=== PATIENT | male | born 1995 | race Caucasian/White ===

== ENCOUNTER 2022-11-25 20:34 | Emergency (ER) | payer SELFPAY ==
[2022-11-25 20:38] VITALS: BP 133/99; BP 148/98; PULSE 122; PULSE 98; RESP 16; TEMP 36.9; O2SAT 100; O2SAT 94; BMI 18.3
--- NOTE | 2022-11-25 21:36 | ED_ITS ---
HPI - Overdose General Chief Complaint: Overdose Stated Complaint: overdose Time Seen by Provider: 11/25/22 20:52 Source: patient Mode of arrival: ambulatory Limitations: no limitations History of Present Illness HPI Narrative: 26-year-old male brought in by ambulance for evaluation after was given Narcan. Patient admitted to using 1 bag of heroin intravenously found by his cousin in the bathroom unresponsive patient was given 4 mg of Narcan intranasally by EMS and he was bagged by EMS with BMV, patient department and is awake, alert, declined any SI or HI, patient admitted that he is homeless has no place to go tonight and very tired he has not slept for the past 3 days. Patient with stable vital signs while he is in the emergency department. Related Data Allergies Allergy/AdvReac Type Severity Reaction Status Date / Time No Known Allergies Allergy Verified 11/26/22 00:27 Review of Systems Review of Systems: All other systems are reviewed and are negative Constitutional: Reports as per HPI and Reports no additional constitutional complaints Eyes: Reports as per HPI and Reports no additional eye complaints Reports system reviewed and no additional complaints, except as documented Cardiovascular: Reports as per HPI and Reports no additional cardiovascular complaints Respiratory: Reports as per HPI and Reports no additional respiratory complaints Gastrointestinal: Reports as per HPI and Reports no additional gastrointestinal complaints Genitourinary: Reports no additional female genitourinary complaints Musculoskeletal: Reports no additional musculoskeletal complaints Skin/Breast: Reports system reviewed and no additional complaints, except as docu Psychiatric: Reports no additional psychiatric complaints Endocrine: Reports no additional endocrine complaints Hematologic/Lymphatic: Reports no additional hematologic/lymphatic complaints Allergic/Immunologic: Reports no additional allergic/immunologic complaints Reports system reviewed and no additional complaints, except as documented and Reports Abnormal speech present [facility] Social History Social History Advance Directives: No Physical Exam Vital Signs: Vital Signs: Last Vital Signs Temp 97.4 F 11/25/22 21:55 Pulse 84 11/25/22 23:47 Resp 16 11/25/22 23:47 BP 114/66 11/25/22 23:47 Pulse Ox 97 11/25/22 23:47 O2 Del Method 11/25/22 23:47 BMI result Body Mass Index 18.3 Vital signs have been reviewed as appeared to be correct. Blood pressure normal. Heart rate normal. Respiration rate normal. Temperature normal. Oxygen saturation normal. Appearance: Alert. Oriented X3. No acute distress. Head: Normal external exam. Normocephalic. Atraumatic. No Nunn signs noted. No raccoon eyes noted Eyes: PERRLA. EOMI. Conjunctiva and sclera normal. Eyelids normal. ENT: TM's Normal. Pharynx normal. Uvula midline. Moist mucous membranes. No trismus noted. No drooling noted. No muffled voice noted. Neck: Normal inspection. Neck supple. FROM. No adenopathy. Thyroid Normal. No meningeal signs. No neck mass noted. CVS: Normal heart rate and rhythm. Heart sound normal. No murmurs noted. Pulses normal throughout. Respiratory: No respiratory distress. Painless inspiration. Breath sounds normal. No wheezes/rales/rhonchi noted. Chest nontender. No accessory muscle usage noted or decreased air movement noted. Abdomen: Soft and nontender. Bowel sounds normal in all 4 quadrants. No distention noted. No organomegaly noted. No visible injury noted. Back: No CVA tenderness. Full range of motion noted. Skin: Skin warm and dry. Normal skin color. Normal skin turgor. No rashes/lesions/lacerations noted. Extremities: No lower extremity edema. Extremities exhibit normal range of motion. Extremities nontender. Neuro: Oriented X 3. Cranial nerve exam: II-XII are grossly intact No motor deficit. No sensory deficit. Reflexes normal. Course Course Course Narrative: 26-year-old male came in after using heroin became responsive required Narcan intranasally by EMS, patient kept in the emergency department for 6 hour observation patient had stable vital signs throughout stay in the emergency department, patient now is more awake able to tolerate p.o. intake. Medical Decision Making Differential Diagnosis Differential Diagnoses: The differential diagnosis associated with the presentation includes (Substance abuse, syncope, head injury, depression with SI.) Discharge Plan Discharge Clinical Impression: Drug overdose, Substance abuse Patient Disposition: Home, Self-Care Instructions: Polysubstance Abuse (ED) Interventions: [place]-Suicide Risk Severity Scale Last Done: 11/25/22 20:48
--- NOTE | 2022-11-25 21:50 | PC.NURSE ---
Pt A&Ox4, ambulated to stretcher, reports accidental OD, used half bag of heroine, injected . EMS gave one dose of Narcan. Denies SI/HI. Pt changed over done.
[2022-11-25 21:55] VITALS: BP 119/71; PULSE 105; RESP 18; TEMP 36.3; O2SAT 99
--- NOTE | 2022-11-25 21:57 | MHC.EDTECH ---
pt given clean socks and assisited to bathroom. pt still very sleepy unable to give to registration at this time
[2022-11-25 23:47] VITALS: BP 114/66; PULSE 84; RESP 16; O2SAT 97
[2022-11-26 06:34] VITALS: BP 122/78; PULSE 64; RESP 18; TEMP 36.8; O2SAT 94
[2022-11-26] MEDS: Naloxone HCl Nasal TAKE HOME 4 MG SPRAY NOSTRILALT (07:08)
--- NOTE | 2022-11-26 07:12 | PC.NURSE ---
Pt awake, D/c instructions given along with take home narcan. Pt ambulatory upon d/c.
== END 2022-11-26 07:20 | disposition home or self-care (01) ==
PROVIDERS: Emergency Provider Emergency Medicine
DX: T40.1X1A Poisoning by heroin, accidental (unintentional), initial encounter (principal); F11.19 Opioid abuse with unspecified opioid-induced disorder; Y92.9 Unspecified place or not applicable; Z71.51 Drug abuse counseling and surveillance of drug abuser
CPT/HCPCS: 99284

== ENCOUNTER 2024-02-09 22:04 | Emergency (ER) | payer SELFPAY ==
[2024-02-09 22:11] VITALS: BP 151/100; PULSE 107; O2SAT 100
--- NOTE | 2024-02-09 22:23 | PC.NURSE ---
Security at bedside for changeover.
[2024-02-09 22:56] VITALS: BP 132/100; PULSE 92; RESP 14; TEMP 36.9; O2SAT 100; BMI 21.3
--- NOTE | 2024-02-09 22:56 | ED_ITS ---
HPI - Overdose General Chief Complaint: ETOH/Substance Use Stated Complaint: Opiate OD possible SI attempt, narcan given Time Seen by Provider: 02/09/24 22:52 Source: patient and EMS Mode of arrival: EMS Limitations: other (Patient refusing) History of Present Illness HPI Narrative: Patient homeless with history of IVDA use cocaine and heroin was found unresponsive by PD gave 8 mg of Narcan awake and was talking AMS family report patient complaining of SI patient refusing to answer sleeping in the ED Related Data Allergies Allergy/AdvReac Type Severity Reaction Status Date / Time No Known Allergies Allergy Verified 02/09/24 22:57 Review of Systems Review of Systems: Yes Other (Patient non cooperative) [facility] Past Medical History Medical History (Updated 02/10/24 @ 05:16 by Paul Lopez MD) Polysubstance abuse Social History Social History Unable to assess alcohol history related to: Refusing to respond Use of substances other than those prescribed or required for medical reasons: Refusing to respond Advance Directives: No Advance Directives Information Provided: No Physical Exam Vital Signs: Vital Signs: Last Vital Signs Temp 98.5 F 02/10/24 03:00 Pulse 79 02/10/24 03:00 Resp 17 02/10/24 03:00 BP 122/73 02/10/24 03:00 Pulse Ox 100 02/10/24 03:00 O2 Del Method Room Air 02/10/24 03:00 BMI result Body Mass Index 21.3 Appearance: Alert. Oriented X3. No acute distress. Sleeping Eyes: PERRLA, No Nystagmus ENT: Pharynx normal. Oral Mucosa moist Neck: Normal inspection. Neck supple. CVS: Normal heart rate and rhythm. Pulses normal. Respiratory: No respiratory distress. Equal air entry bilateral, no wheezing/rales/rhonchi Abdomen: Soft and nontender. Bowel sounds are present, no mass palpable, no CVA tenderness Skin: Skin warm and dry. Normal skin color. Normal skin turgor. Extremities: No lower extremity edema. No calf tenderness Neuro: Oriented X 3. No motor deficit. No sensory deficit.No cerebellar signs , cranial nerves II-XII intact Medical Decision Making Medical Decision Making MDM Narrative: 05:10 patient woke up requesting to sleep longer have wanted some food denied any SI or depression says that he took extra heroin and cocaine by [place] and he will follow-up as outpatient with detox. Discharge Plan Discharge Clinical Impression: Polysubstance abuse Patient Disposition: Home, Self-Care Instructions: Polysubstance Abuse (ED) Additional Instructions: Stop using drugs Follow-up with detox Referrals: Jayne March CNP [Nurse Practitioner] - 3 days Print Language: Amharic
--- NOTE | 2024-02-09 23:00 | PC.NURSE ---
Pt refusing to answer questions, unable to complete [place] Scale at this time.
--- NOTE | 2024-02-09 23:07 | PC.NURSE ---
pt not responding to assessment questions at this time. laying in stretcher in the hallway. on continuous pulse ox.
[2024-02-10 02:32] VITALS: BP 124/80; PULSE 107; O2SAT 97
[2024-02-10 03:00] VITALS: BP 122/73; PULSE 79; RESP 17; TEMP 36.9; O2SAT 100
[2024-02-10 05:50] VITALS: BP 122/73; PULSE 79; RESP 17; TEMP 36.9; O2SAT 100
== END 2024-02-10 05:52 | disposition home or self-care (01) ==
PROVIDERS: Emergency Provider Internal Medicine
DX: F19.10 Other psychoactive substance abuse, uncomplicated (principal); F14.10 Cocaine abuse, uncomplicated; F11.10 Opioid abuse, uncomplicated
CPT/HCPCS: 99284